=== PATIENT | male | born 1980 | race Caucasian/White ===

== ENCOUNTER 2016-10-10 20:10 | Emergency (ER) | payer OTHER ==
--- NOTE | 2016-10-10 21:21 | ED ORDER SUMMARY ---
..... Patient: JACBO QUINTANA OrderSheet [facility] VisitID: [id number] [address] [place] [address] 35y, M Registration Date/Time: 10/10/2016 ORDER SHEET Weight: 72.5 kg (stated) Allergies: Codeine GENERAL ORDERS: MEDICATION ORDERS: Bactrim DS PO (Tablet 800-160 mg) 2 tabs (NOW) (21:19 10/10/2016 Rosalinda BERRIOS) (Ack 21:20 MWinterer R.N.) (21:31 MWinterer R.N.) Hydrocodone-APAP PO 5/325 mg (NOW, HIGH ALERT MEDICATION) (21:19 10/10/2016 Rosalinda BERRIOS) (Ack 21:20 MWinterer R.N.) (Cancelled: Other21:31 MWinterer R.N.) Ibuprofen PO 800 mg (NOW) (21:31 10/10/2016 MWinterer R.N. verbal order read back to Rosalinda BERRIOS) (21:31 MWinterer R.N.) IV FLUIDS: ORDER SHEET NOTES: [Electronically signed by Margie Lock R.N. (22:04 10/10/2016)] [Electronically signed by Dahiana Jaramillo MD (02:41 10/18/2016)] [Electronically locked/signed by Margie Lock R.N. (22:04 10/10/2016)]
--- NOTE | 2016-10-10 21:21 | ED ORDER SUMMARY ---
..... Patient: JACOB QUINTANA OrderSheet [facility] VisitID: [id number] [address] [place] [address] 35y, M Registration Date/Time: 10/10/2016 ORDER SHEET Weight: 72.5 kg (stated) Allergies: Codeine GENERAL ORDERS: MEDICATION ORDERS: Bactrim DS PO (Tablet 800-160 mg) 2 tabs (NOW) (21:19 10/10/2016 Rosalinda BERRIOS) (Ack 21:20 MWinterer R.N.) (21:31 MWinterer R.N.) Hydrocodone-APAP PO 5/325 mg (NOW, HIGH ALERT MEDICATION) (21:19 10/10/2016 Rosalinda BERRIOS) (Ack 21:20 MWinterer R.N.) (Cancelled: Other21:31 MWinterer R.N.) Ibuprofen PO 800 mg (NOW) (21:31 10/10/2016 MWinterer R.N. verbal order read back to Rosalinda BERRIOS) (21:31 MWinterer R.N.) IV FLUIDS: ORDER SHEET NOTES: [Electronically signed by Margie Lock R.N. (22:04 10/10/2016)] [Electronically signed by Dahiana Jaramillo MD (02:41 10/18/2016)] [Electronically locked/signed by Margie Lock R.N. (22:04 10/10/2016)]
--- NOTE | 2016-10-10 21:21 | ED NURSING NOTES ---
Clinical Report - Nurses Located Within [facility] [address] [place] [address] 10/10/2016 20:10 Patient: JACOB QUINTANA TRIAGE Acuity: LEVEL 4. Chief Complaint: BOIL. Alert. No acute distress. SEPSIS SCREEN: Sepsis Screen. Negative (no infection suspected/documented). --20:19 Margie Lock R.N. 20:13 10/10/16. BP: 113/83. HR: 117. RR: 20. O2 saturation: 100% on room air. Temp: 99.9 F. Pain level now: 12/20. --20:19 Margie Lock R.N. Weight: 72.5 kg stated. Height/Length: 65 inches Per Patient. BMI: 26.6. --20:17 Margie Lock R.N. Medications Methadone HCl Oral 90 mg. --20:14 Margie Lock R.N. Adderall Oral. --20:15 Margie Lock R.N. Medication/allergy information source: the patient. --20:19 Margie Lock R.N. Allergies Codeine.(rash) --20:14 Margie Lock R.N. History Arrived by private vehicle. Historian: patient. Unaccompanied. Primary physician (none). Reported as located on the face. This started yesterday. Treatment STUDENT NURSE: (ativan). PAST MEDICAL HX: Immunizations: up-to-date. SOCIAL HX: Current some days light tobacco smoker (cigarette)- less than 1/2 a pack per day. Heavy alcohol use; consumes liquor. History of IV drug use: methamphetamines. Recently used drugs yesterday. FALL RISK ASSESSMENT: Fall risk assessment completed. No fall risk identified. NUTRITIONAL RISK ASSESSMENT: The nutritional risk assessment revealed no deficiencies. FUNCTIONAL ASSESSMENT: Functional assessment: no impairments noted. LEARNING NEEDS ASSESSMENT: The learning needs assessment revealed no barriers. SKIN INTEGRITY ASSESSMENT: Skin integrity risk assessment completed. No skin integrity risk identified. --20:19 Margie Lock R.N. PROBLEMS: Hypertension. Folliculitis. Near Syncope. Cellulitis Check. Cellulitis. Abscess. Substance Abuse. --20:15 Margie Lock R.N. ADDITIONAL SURGERIES: Hernia Repair. --20:15 Margie Lock R.N. Assessment GENERAL / NEURO / PSYCH: Alert. Oriented X 4. Appears in no acute distress. Iram Coma Scale: 15- eyes open spontaneously (4); best verbal response- oriented x 4 (5); best motor response- obeys commands (6). Patient appears calm and cooperative. RESPIRATORY: Respirations not labored. CVS: Capillary refill less than 2 seconds. GI / : Abdomen soft. SKIN: Mucous membranes are pink. Skin is warm and dry. --20:19 Margie Lock R.N. Interventions ID band on patient. To treatment room. Ambulatory. --20:19 Margie Lock R.N. PHYSICAL ASSESSMENT 20:10/10/16. Ambulatory to room. GENERAL / NEURO / PSYCH: Alert. The patient does not appear to be in acute distress. Oriented X 4. HEENT: Mucous membranes are pink. RESPIRATORY: Respirations not labored. CVS: Capillary refill less than 2 seconds. GI / : Abdomen nontender. SKIN: Skin is warm and dry. Multiple skin lesions with erythema, tenderness and increased warmth on the face. Swelling on the face. Medium sized area of erythema on the face- associated with swelling and tenderness. --20:21 Margie Lock R.N. NURSING PROGRESS NOTES 20:10/10/16. Two patient identifiers checked. Call light placed in reach. Side rails up x 1. Bed placed in lowest position. Brakes of bed on. Patient ready for evaluation- chart flagged and ED physician and MOBILE GAME ENGINEER notified. --20:21 Margie Lock R.N. 21:10/10/2016 Bactrim DS (Sulfamethoxazole-TMP DS) PO 1 tab given. Allergies verified and confirmed 5 rights. --21:31 Margie Lock R.N. 21:26 10/10/2016 Ibuprofen PO 800 mg given. Allergies verified and confirmed 5 rights. --21:31 Margie Lock R.N. DISPOSITION / DISCHARGE Departure time: 21:Oct 10 2016. Condition at departure: improved and stable. No learning barriers present. Discharge instructions provided and reviewed with the patient. Reviewed medication(s) side effects, precautions and dosing information. Prescription(s) given to the patient. Patient verbalized understanding. Written instructions provided in Arabic. The patient was discharged by the physician. He was discharged home. He left the Emergency Department ambulatory and via private vehicle. Patient driving. --22:04 Margie Lock R.N. Locked/Released at 10/10/2016 22:04 by Margie Lock R.N.
--- NOTE | 2016-10-10 21:21 | ED CLINICAL REPORT ---
Clinical Report - Physicians/Mid Levels [facility] [address] [place] [address] 10/10/2016 20:10 Patient: JACOB QUINTANA Time Seen: 20:20. Arrived- By private vehicle. Historian- patient. HISTORY OF PRESENT ILLNESS Chief Complaint: SKIN RASH. This started several weeks ago and is still present. It is described as itchy. It has been located on the face. A cause has been identified (Patient states he knows that he has the scabs on his face because he has relapsed on methamphetamines.). Similar symptoms previously: Recent medical care: Not recently seen/assessed. REVIEW OF SYSTEMS No fever, chills, sore throat, cough or difficulty breathing. No hoarseness, lump in throat, enlarged lymph nodes, headache or eye irritation. No chest pain, abdominal pain, nausea, diarrhea or difficulty with urination. No joint pain or vomiting. All systems otherwise negative, except as recorded above. PAST HISTORY Problems: Hypertension. Folliculitis. Near Syncope. Abscess. Substance Abuse. Additional Surgeries: Hernia Repair. Medications: Adderall Oral. Methadone HCl Oral 90 mg. Allergies: Codeine.(rash). SOCIAL HISTORY Smoker- current status unknown. Alcohol use. History of drug use: methamphetamines. PHYSICAL EXAM Appearance: Alert. Oriented X3. No acute distress. Eyes: Pupils equal, round and reactive to light. Conjunctivae and eyelids normal. ENT: Nose normal. Neck: Neck supple. CVS: Normal heart rate and rhythm. Heart sounds normal. Respiratory: No respiratory distress. Breath sounds normal. Abdomen: Nontender. Skin: Skin warm and dry. (patient has multiple scabbed lesions on his face, and in various stages of healing. Mild amount of cellulitis is associated with 2 of the lesions.). Extremities: Normal external inspection. Extremities nontender. Neuro: No motor deficit. No sensory deficit. (Patient is grossly oriented.). LABS, X-RAYS, AND EKG Pulse Oximetry: 10/10/2016 20:13 O2 saturation: 100%. (FIO2 - room air). Interpretation: normal. PROGRESS AND PROCEDURES Course of Care: Patient was started on Bactrim for his facial lesions. He was given a dose of ibuprofen for his discomfort. Patient is advised to get help with his drug use, and he is advised to take all his medications as prescribed. Patient counseled in person regarding the patient's stable condition, diagnosis and need for follow-up. Concerns were addressed. Old medical records reviewed. Disposition: Discharged. Condition: stable. CLINICAL IMPRESSION Cellulitis of the chin and right and left cheek area. INSTRUCTIONS Warnings: GENERAL WARNINGS: Return or contact your physician immediately if your condition worsens or changes unexpectedly, if not improving as expected, or if other problems arise. Your Current Medications: CONTINUE TAKING THE FOLLOWING MEDICATIONS: Adderall Oral. Methadone HCl Oral : 90 mg. Prescription Medications: Bactrim DS 800 mg / 160 mg: take 1 tablet orally every 12 hours for 7 days. No refill. Substitution is permissible. Follow-up: Follow up with your doctor in seven days if not better. Understanding of the discharge instructions verbalized by patient. (Electronically signed by Dahiana Jaramillo MD 10/18/2016 2:41)
--- NOTE | 2016-10-10 21:21 | ED NURSING NOTES ---
Clinical Report - Nurses [facility] [address] [place] [address] 10/10/2016 20:10 Patient: JACOB QUINTANA TRIAGE Acuity: LEVEL 4. Chief Complaint: BOIL. Alert. No acute distress. SEPSIS SCREEN: Sepsis Screen. Negative (no infection suspected/documented). --20:19 Margie Lock R.N. 20:13 10/10/16. BP: 113/83. HR: 117. RR: 20. O2 saturation: 100% on room air. Temp: 99.9 F. Pain level now: 12/20. --20:19 Margie Lock R.N. Weight: 72.5 kg stated. Height/Length: 65 inches Per Patient. BMI: 26.6. --20:17 Margie Lock R.N. Medications Methadone HCl Oral 90 mg. --20:14 Margie Lock R.N. Adderall Oral. --20:15 Margie Lock R.N. Medication/allergy information source: the patient. --20:19 Margie Lock R.N. Allergies Codeine.(rash) --20:14 Margie Lock R.N. History Arrived by private vehicle. Historian: patient. Unaccompanied. Primary physician (none). Reported as located on the face. This started yesterday. Treatment SALES REPRESENTATIVE ELECTRIC SERVICE: (ativan). PAST MEDICAL HX: Immunizations: up-to-date. SOCIAL HX: Current some days light tobacco smoker (cigarette)- less than 1/2 a pack per day. Heavy alcohol use; consumes liquor. History of IV drug use: methamphetamines. Recently used drugs yesterday. FALL RISK ASSESSMENT: Fall risk assessment completed. No fall risk identified. NUTRITIONAL RISK ASSESSMENT: The nutritional risk assessment revealed no deficiencies. FUNCTIONAL ASSESSMENT: Functional assessment: no impairments noted. LEARNING NEEDS ASSESSMENT: The learning needs assessment revealed no barriers. SKIN INTEGRITY ASSESSMENT: Skin integrity risk assessment completed. No skin integrity risk identified. --20:19 Margie Lock R.N. PROBLEMS: Hypertension. Folliculitis. Near Syncope. Cellulitis Check. Cellulitis. Abscess. Substance Abuse. --20:15 Margie Lock R.N. ADDITIONAL SURGERIES: Hernia Repair. --20:15 Margie Lock R.N. Assessment GENERAL / NEURO / PSYCH: Alert. Oriented X 4. Appears in no acute distress. Iram Coma Scale: 15- eyes open spontaneously (4); best verbal response- oriented x 4 (5); best motor response- obeys commands (6). Patient appears calm and cooperative. RESPIRATORY: Respirations not labored. CVS: Capillary refill less than 2 seconds. GI / : Abdomen soft. SKIN: Mucous membranes are pink. Skin is warm and dry. --20:19 Margie Lock R.N. Interventions ID band on patient. To treatment room. Ambulatory. --20:19 Margie Lock R.N. PHYSICAL ASSESSMENT 20:10/10/16. Ambulatory to room. GENERAL / NEURO / PSYCH: Alert. The patient does not appear to be in acute distress. Oriented X 4. HEENT: Mucous membranes are pink. RESPIRATORY: Respirations not labored. CVS: Capillary refill less than 2 seconds. GI / : Abdomen nontender. SKIN: Skin is warm and dry. Multiple skin lesions with erythema, tenderness and increased warmth on the face. Swelling on the face. Medium sized area of erythema on the face- associated with swelling and tenderness. --20:21 Margie Lock R.N. NURSING PROGRESS NOTES 20:10/10/16. Two patient identifiers checked. Call light placed in reach. Side rails up x 1. Bed placed in lowest position. Brakes of bed on. Patient ready for evaluation- chart flagged and ED physician and OPERATIONS ARCHITECT notified. --20:21 Margie Lock R.N. 21:10/10/2016 Bactrim DS (Sulfamethoxazole-TMP DS) PO 1 tab given. Allergies verified and confirmed 5 rights. --21:31 Margie Lock R.N. 21:26 10/10/2016 Ibuprofen PO 800 mg given. Allergies verified and confirmed 5 rights. --21:31 Margie Lock R.N. DISPOSITION / DISCHARGE Departure time: 21:Oct 10 2016. Condition at departure: improved and stable. No learning barriers present. Discharge instructions provided and reviewed with the patient. Reviewed medication(s) side effects, precautions and dosing information. Prescription(s) given to the patient. Patient verbalized understanding. Written instructions provided in Hebrew. The patient was discharged by the physician. He was discharged home. He left the Emergency Department ambulatory and via private vehicle. Patient driving. --22:04 Margie Lock R.N. Locked/Released at 10/10/2016 22:04 by Margie Lock R.N.
--- NOTE | 2016-10-10 21:21 | ED CLINICAL REPORT ---
Clinical Report - Physicians/Mid Levels [facility] [address] [place] [address] 10/10/2016 20:10 Patient: JACOB QUINTANA Time Seen: 20:20. Arrived- By private vehicle. Historian- patient. HISTORY OF PRESENT ILLNESS Chief Complaint: SKIN RASH. This started several weeks ago and is still present. It is described as itchy. It has been located on the face. A cause has been identified (Patient states he knows that he has the scabs on his face because he has relapsed on methamphetamines.). Similar symptoms previously: Recent medical care: Not recently seen/assessed. REVIEW OF SYSTEMS No fever, chills, sore throat, cough or difficulty breathing. No hoarseness, lump in throat, enlarged lymph nodes, headache or eye irritation. No chest pain, abdominal pain, nausea, diarrhea or difficulty with urination. No joint pain or vomiting. All systems otherwise negative, except as recorded above. PAST HISTORY Problems: Hypertension. Folliculitis. Near Syncope. Abscess. Substance Abuse. Additional Surgeries: Hernia Repair. Medications: Adderall Oral. Methadone HCl Oral 90 mg. Allergies: Codeine.(rash). SOCIAL HISTORY Smoker- current status unknown. Alcohol use. History of drug use: methamphetamines. PHYSICAL EXAM Appearance: Alert. Oriented X3. No acute distress. Eyes: Pupils equal, round and reactive to light. Conjunctivae and eyelids normal. ENT: Nose normal. Neck: Neck supple. CVS: Normal heart rate and rhythm. Heart sounds normal. Respiratory: No respiratory distress. Breath sounds normal. Abdomen: Nontender. Skin: Skin warm and dry. (patient has multiple scabbed lesions on his face, and in various stages of healing. Mild amount of cellulitis is associated with 2 of the lesions.). Extremities: Normal external inspection. Extremities nontender. Neuro: No motor deficit. No sensory deficit. (Patient is grossly oriented.). LABS, X-RAYS, AND EKG Pulse Oximetry: 10/10/2016 20:13 O2 saturation: 100%. (FIO2 - room air). Interpretation: normal. PROGRESS AND PROCEDURES Course of Care: Patient was started on Bactrim for his facial lesions. He was given a dose of ibuprofen for his discomfort. Patient is advised to get help with his drug use, and he is advised to take all his medications as prescribed. Patient counseled in person regarding the patient's stable condition, diagnosis and need for follow-up. Concerns were addressed. Old medical records reviewed. Disposition: Discharged. Condition: stable. CLINICAL IMPRESSION Cellulitis of the chin and right and left cheek area. INSTRUCTIONS Warnings: GENERAL WARNINGS: Return or contact your physician immediately if your condition worsens or changes unexpectedly, if not improving as expected, or if other problems arise. Your Current Medications: CONTINUE TAKING THE FOLLOWING MEDICATIONS: Adderall Oral. Methadone HCl Oral : 90 mg. Prescription Medications: Bactrim DS 800 mg / 160 mg: take 1 tablet orally every 12 hours for 7 days. No refill. Substitution is permissible. Follow-up: Follow up with your doctor in seven days if not better. Understanding of the discharge instructions verbalized by patient. (Electronically signed by Dahiana Jaramillo MD 10/18/2016 2:41)
--- NOTE | 2016-10-18 02:41 | ED MED RECONCILIATION SUMMARY ---
Patient: JACOB QUINTANA Medication Reconciliation Report [facility] VisitID: [id number] [address] [place] [address] 35y, M Registration Date/Time: 10/10/2016 Weight: 72.5 kg Height/Length: 65 in. BMI: 26.6 ALLERGIES: Codeine The patient's Home Medications are listed below: CONTINUE TAKING THE FOLLOWING MEDICATIONS: Adderall Oral Methadone HCl Oral 90 mg The source(s) of the original Home Medication information: patient The following Medications were given to the patient in the Emergency Department: Bactrim DS [PO] PO 1 tab, administered: 10/10/2016 9:26:00 PM Ibuprofen [PO] PO 800 mg, administered: 10/10/2016 9:26:00 PM The following Medications were prescribed to the patient: Bactrim DS 800 mg / 160 mg: take 1 tablet orally every 12 hours for 7 days. No refill. Substitution is permissible. -- Dahiana Jaramillo MD
--- NOTE | 2016-10-18 02:41 | ED MAR SUMMARY ---
..... Medication Administration Record [facility] [address] [place] [address] Patient: JACOB QUINTANA Visit ID: [id number] 35y, M Weight: 72.5 kg Height/Length: 65 in BMI: 26.6 ALLERGIES: Codeine Given 10/10/2016 Margie Lock, R.N. Medication Administered: BACTRIM DS [PO] (SULFAMETHOXAZOLE-TMP DS), Dose: 1 tab PO. Medication Ordered: Bactrim DS PO (Tablet 800-160 mg) 2 tabs (NOW). Given 10/10/2016 Margie Lock, R.N. Medication Administered: IBUPROFEN [PO], Dose: 800 mg PO. Medication Ordered: Ibuprofen PO 800 mg (NOW).
--- NOTE | 2016-10-18 02:41 | ED MAR SUMMARY ---
..... Medication Administration Record [facility] [address] [place] [address] Patient: JACOB QUINTANA Visit ID: [id number] 35y, M Weight: 72.5 kg Height/Length: 65 in BMI: 26.6 ALLERGIES: Codeine Given 10/10/2016 Margie Lock, R.N. Medication Administered: BACTRIM DS [PO] (SULFAMETHOXAZOLE-TMP DS), Dose: 1 tab PO. Medication Ordered: Bactrim DS PO (Tablet 800-160 mg) 2 tabs (NOW). Given 10/10/2016 Margie Lock, R.N. Medication Administered: IBUPROFEN [PO], Dose: 800 mg PO. Medication Ordered: Ibuprofen PO 800 mg (NOW).
--- NOTE | 2016-10-18 02:41 | ED MED RECONCILIATION SUMMARY ---
Patient: JACOB QUINTANA Medication Reconciliation Report [facility] VisitID: [id number] [address] [place] [address] 35y, M Registration Date/Time: 10/10/2016 Weight: 72.5 kg Height/Length: 65 in. BMI: 26.6 ALLERGIES: Codeine The patient's Home Medications are listed below: CONTINUE TAKING THE FOLLOWING MEDICATIONS: Adderall Oral Methadone HCl Oral 90 mg The source(s) of the original Home Medication information: patient The following Medications were given to the patient in the Emergency Department: Bactrim DS [PO] PO 1 tab, administered: 10/10/2016 9:26:00 PM Ibuprofen [PO] PO 800 mg, administered: 10/10/2016 9:26:00 PM The following Medications were prescribed to the patient: Bactrim DS 800 mg / 160 mg: take 1 tablet orally every 12 hours for 7 days. No refill. Substitution is permissible. -- Dahiana Jaramillo MD
--- NOTE | 2016-10-18 02:41 | ED DISCHARGE INSTRUCTIONS ---
Patient: JACOB QUINTANA General Instructions [facility] VisitID: [id number] [place] [address] 35y, M Registration Date/Time: 10/10/2016 Cellulitis of the chin and right and left cheek area. INSTRUCTIONS Warnings: GENERAL WARNINGS: Return or contact your physician immediately if your condition worsens or changes unexpectedly, if not improving as expected, or if other problems arise. Your Current Medications: CONTINUE TAKING THE FOLLOWING MEDICATIONS: Adderall Oral. Methadone HCl Oral : 90 mg. Prescription Medications: Bactrim DS 800 mg / 160 mg: take 1 tablet orally every 12 hours for 7 days. No refill. Substitution is permissible. Follow-up: Follow up with your doctor in seven days if not better. Understanding of the discharge instructions verbalized by patient. ADDITIONAL INFORMATION Facial Cellulitis You have an infection of the skin known as cellulitis. This usually starts with a scrape, cut or insect bite which becomes infected. It may also occur from an infected oil gland (pimple) or hair follicle. This can be a serious condition and must be watched closely to be sure the infection is not spreading. With antibiotic treatment, the size of the red area will gradually shrink in size until the skin returns to normal. This will take 7-10 days. The red area should never increase in size once the antibiotic medicine has been started. Occasionally, an infection will be resistant to one antibiotic and another one will have to be used. Home Care: 1) Take all of the antibiotic medicine exactly as prescribed until it is gone. Be careful not to miss any doses, especially during the first few days. 2) A cool compress (face cloth soaked in cool water) applied to the face may help with the swelling and pain. 3) You may use acetaminophen (Tylenol) or ibuprofen (Motrin, Advil) to control pain, unless another medicine was prescribed. [ NOTE : If you have chronic liver or kidney disease or ever had a stomach ulcer or GI bleeding, talk with your doctor before using these medicines.] (Aspirin should never be used in anyone under 18 years of age who is ill with a fever. It may cause severe liver damage.) Follow Up with your doctor or this facility as directed. Check the infected area daily for the warning signs listed below. Get Prompt Medical Attention if any of the following occur: -- Increasing area of redness, swelling or pain -- Pus or fluid drainage from the skin or the eye -- Fever of 100.5 F (38 C) oral or 101.5 F (38.6 C) rectal for more than two days on antibiotics -- Eyelid swells shut -- Increasing headache or neck pain -- Unusual drowsiness or confusion -- Convulsion (seizure) You have been given the following additional information: Cellulitis, Facial (Electronically signed by Dahiana Jaramillo MD 10/18/2016 2:41)
== END 2016-10-10 22:34 | disposition home or self-care (01) ==
LOC: ED SRH 20:10
DX: L03.211 Cellulitis of face (principal); Z79.899 Other long term (current) drug therapy; Z79.891 Long term (current) use of opiate analgesic; Z88.5 Allergy status to narcotic agent

== ENCOUNTER 2016-11-11 13:42 | Emergency (ER) | payer OTHER ==
--- NOTE | 2016-11-11 14:35 | ED NURSING NOTES ---
Clinical Report - Nurses [facility] [address] [place] [address] 11/11/2016 13:41 Patient: JACOB QUINTANA TRIAGE Triage time 13:57. Acuity: LEVEL 4. Chief Complaint: SKIN LESION and TENDER AREA and . possible abscess from razor cut 2 days ago. C/o pain and swelling on the right cheek and into his lower jaw. SEPSIS SCREEN: Sepsis Screen. Negative (no infection suspected/documented). IRAM COMA SCORE: Iram Coma Scale: 15- eyes open spontaneously (4); best verbal response- oriented x 4 (5); best motor response- obeys commands (6). --14:04 Rajan Knight R.N. 13:57 11/11/16. BP: 118/74 (regular adult cuff) taken on the left arm, while lying. HR: 86. RR: 16. O2 saturation: 100% on room air. Temp: 98.7 F (oral). Pain level now: 08/20. --14:04 Rajan Knight R.N. Weight: 75.7 kg stated. Height/Length: 65 inches Per Patient. BMI: 27.8. --14:01 Rajan Knight R.N. Medications Adderall Oral. Methadone HCl Oral 90 mg. --13:58 Rajan Knight R.N. Allergies Codeine.(rash) --13:58 Rajan Knight R.N. History Arrived by private vehicle. Historian: patient. 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 SOCIAL HX: Smoker- current status unknown (cigarette) (still chews - planning to quit). Alcohol use. (quit 1 week ago due to LFTs). History of drug use. (Quit). ABUSE ASSESSMENT: No report of abuse. --14:04 Rajan Knight R.N. PROBLEMS: Hypertension. Folliculitis. Near Syncope. Cellulitis Check. Cellulitis. Abscess. Substance Abuse. --13:58 Rajan Knight R.N. ADDITIONAL SURGERIES: Hernia Repair. --13:58 Rajan Knight R.N. Interventions ID band on patient. To treatment room. --14:04 Rajan Knight R.N. PHYSICAL ASSESSMENT Ambulatory to room. GENERAL / NEURO / PSYCH: Alert. The patient does not appear to be in acute distress. Oriented X 4. HEENT: Pupils equal, round and reactive to light. Facial swelling present right cheek and under lower jaw. Mucous membranes are pink. RESPIRATORY: Respirations not labored. Breath sounds within normal limits. SKIN: Skin is warm and dry. Normal skin turgor. Skin not intact. Skin tenderness is present. Tenderness on the face. Erythema on the face. No skin rash. --14:06 Rajan Knight R.N. NURSING PROGRESS NOTES Head of bed elevated. Reassurance given. Two patient identifiers checked. Call light placed in reach. Bed placed in lowest position. Brakes of bed on. Patient ready for evaluation- chart flagged. --14:07 Rajan Knight R.N. DISPOSITION / DISCHARGE Departure time: 1437. Condition at departure: unchanged and stable. No learning barriers present. Discharge instructions provided and reviewed with the patient. Reviewed warnings. Reviewed medication(s). Treatments reviewed. Patient verbalized understanding. Written instructions provided in [place]. The patient was discharged by the physician. He was discharged home. He left the Emergency Department ambulatory and via private vehicle. Patient driving. --14:39 Rajan Knight R.N. Locked/Released at 11/12/2016 8:03 by Rajan Knight R.N.
--- NOTE | 2016-11-11 14:35 | ED CLINICAL REPORT ---
Clinical Report - Physicians/Mid Levels [facility] [address] [place] [place] [address] 11/11/2016 13:41 Patient: JACOB QUINTANA Time Seen: 14:03. Arrived- By private vehicle. Historian- patient. HISTORY OF PRESENT ILLNESS Chief Complaint: SKIN RASH and LESION. This started several days weeks ago. It is described as itchy and painful. It has been located on the face. No cause has been identified. No recent medication or insect bite. Similar symptoms previously: Several times. ( MRSA and Meth picking. Not currently using meth per pt.). REVIEW OF SYSTEMS No fever, cough, difficulty breathing or abdominal pain. PAST HISTORY PAST HISTORY Problems: Hypertension. Folliculitis. Near Syncope. Abscess. Substance Abuse. Additional Surgeries: Hernia Repair. Medications: Adderall Oral. Methadone HCl Oral 90 mg. 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 ADDITIONAL NOTES The nursing notes have been reviewed. PHYSICAL EXAM Vital Signs: 11/11/2016 13:57 BP: 118/74. HR: 86. RR: 16. O2 saturation: 100%. Temp: 98.7 F. Pain level now: 3/10. Appearance: Alert. No acute distress. ENT: Pharynx normal. Respiratory: No respiratory distress. Breath sounds normal. Chest nontender. Abdomen: Nontender. Skin: Multiple tender indurated areas to the face. PROGRESS AND PROCEDURES Disposition: Discharged. Condition: stable. CLINICAL IMPRESSION Multiple superficial abscesses to the face (early ie phlegmon). INSTRUCTIONS Prescription Medications: Bactrim DS 800 mg / 160 mg: Take 1 tablet orally every 12 hours for 7 days. Dispense fourteen (14). No refills. Substitution is permissible. Keflex 500 mg: take 1 capsule orally every 6 hours for 7 days. No refills. Substitution is permissible. Follow-up: Follow up with doctor MONTRELL. Understanding of the discharge instructions verbalized by patient. (Electronically signed by Riccardo Rossi MD 11/12/2016 15:43)
--- NOTE | 2016-11-11 14:35 | ED NURSING NOTES ---
Clinical Report - Nurses [facility] [address] [place] [address] 11/11/2016 13:41 Patient: JACOB QUINTANA TRIAGE Triage time 13:57. Acuity: LEVEL 4. Chief Complaint: SKIN LESION and TENDER AREA and . possible abscess from razor cut 2 days ago. C/o pain and swelling on the right cheek and into his lower jaw. SEPSIS SCREEN: Sepsis Screen. Negative (no infection suspected/documented). IRAM COMA SCORE: Iram Coma Scale: 15- eyes open spontaneously (4); best verbal response- oriented x 4 (5); best motor response- obeys commands (6). --14:04 Rajan Knight R.N. 13:57 11/11/16. BP: 118/74 (regular adult cuff) taken on the left arm, while lying. HR: 86. RR: 16. O2 saturation: 100% on room air. Temp: 98.7 F (oral). Pain level now: 08/20. --14:04 Rajan Knight R.N. Weight: 75.7 kg stated. Height/Length: 65 inches Per Patient. BMI: 27.8. --14:01 Rajan Knight R.N. Medications Adderall Oral. Methadone HCl Oral 90 mg. --13:58 Rajan Knight R.N. Allergies Codeine.(rash) --13:58 Rajan Knight R.N. History Arrived by private vehicle. Historian: patient. 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 SOCIAL HX: Smoker- current status unknown (cigarette) (still chews - planning to quit). Alcohol use. (quit 1 week ago due to LFTs). History of drug use. (Quit). ABUSE ASSESSMENT: No report of abuse. --14:04 Rajan Knight R.N. PROBLEMS: Hypertension. Folliculitis. Near Syncope. Cellulitis Check. Cellulitis. Abscess. Substance Abuse. --13:58 Rajan Knight R.N. ADDITIONAL SURGERIES: Hernia Repair. --13:58 Rajan Knight R.N. Interventions ID band on patient. To treatment room. --14:04 Rajan Knight R.N. PHYSICAL ASSESSMENT Ambulatory to room. GENERAL / NEURO / PSYCH: Alert. The patient does not appear to be in acute distress. Oriented X 4. HEENT: Pupils equal, round and reactive to light. Facial swelling present right cheek and under lower jaw. Mucous membranes are pink. RESPIRATORY: Respirations not labored. Breath sounds within normal limits. SKIN: Skin is warm and dry. Normal skin turgor. Skin not intact. Skin tenderness is present. Tenderness on the face. Erythema on the face. No skin rash. --14:06 Rajan Knight R.N. NURSING PROGRESS NOTES Head of bed elevated. Reassurance given. Two patient identifiers checked. Call light placed in reach. Bed placed in lowest position. Brakes of bed on. Patient ready for evaluation- chart flagged. --14:07 Rajan Knight R.N. DISPOSITION / DISCHARGE Departure time: 1437. Condition at departure: unchanged and stable. No learning barriers present. Discharge instructions provided and reviewed with the patient. Reviewed warnings. Reviewed medication(s). Treatments reviewed. Patient verbalized understanding. Written instructions provided in Congolese. The patient was discharged by the physician. He was discharged home. He left the Emergency Department ambulatory and via private vehicle. Patient driving. --14:39 Rajan Knight R.N. Locked/Released at 11/12/2016 8:03 by Rajan Knight R.N.
--- NOTE | 2016-11-11 14:35 | ED CLINICAL REPORT ---
Clinical Report - Physicians/Mid Levels [facility] [address] [place] [address] 11/11/2016 13:41 Patient: JACOB QUINTANA Time Seen: 14:03. Arrived- By private vehicle. Historian- patient. HISTORY OF PRESENT ILLNESS Chief Complaint: SKIN RASH and LESION. This started several days weeks ago. It is described as itchy and painful. It has been located on the face. No cause has been identified. No recent medication or insect bite. Similar symptoms previously: Several times. ( MRSA and Meth picking. Not currently using meth per pt.). REVIEW OF SYSTEMS No fever, cough, difficulty breathing or abdominal pain. PAST HISTORY PAST HISTORY Problems: Hypertension. Folliculitis. Near Syncope. Abscess. Substance Abuse. Additional Surgeries: Hernia Repair. Medications: Adderall Oral. Methadone HCl Oral 90 mg. 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 ADDITIONAL NOTES The nursing notes have been reviewed. PHYSICAL EXAM Vital Signs: 11/11/2016 13:57 BP: 118/74. HR: 86. RR: 16. O2 saturation: 100%. Temp: 98.7 F. Pain level now: 3/10. Appearance: Alert. No acute distress. ENT: Pharynx normal. Respiratory: No respiratory distress. Breath sounds normal. Chest nontender. Abdomen: Nontender. Skin: Multiple tender indurated areas to the face. PROGRESS AND PROCEDURES Disposition: Discharged. Condition: stable. CLINICAL IMPRESSION Multiple superficial abscesses to the face (early ie phlegmon). INSTRUCTIONS Prescription Medications: Bactrim DS 800 mg / 160 mg: Take 1 tablet orally every 12 hours for 7 days. Dispense fourteen (14). No refills. Substitution is permissible. Keflex 500 mg: take 1 capsule orally every 6 hours for 7 days. No refills. Substitution is permissible. Follow-up: Follow up with doctor MONTRELL. Understanding of the discharge instructions verbalized by patient. (Electronically signed by Riccardo Rossi MD 11/12/2016 15:43)
--- NOTE | 2016-11-12 15:43 | ED DISCHARGE INSTRUCTIONS ---
Patient: JACOB QUINTANA General Instructions [facility] VisitID: [id number] [address] [place] [address] 36y, M Registration Date/Time: 11/11/2016 Multiple superficial abscesses to the face (early ie phlegmon). INSTRUCTIONS Prescription Medications: Bactrim DS 800 mg / 160 mg: Take 1 tablet orally every 12 hours for 7 days. Dispense fourteen (14). No refills. Substitution is permissible. Keflex 500 mg: take 1 capsule orally every 6 hours for 7 days. No refills. Substitution is permissible. Follow-up: Follow up with doctor GLOR. Understanding of the discharge instructions verbalized by patient. ADDITIONAL INFORMATION Abscess (Antibiotic Treatment Only) An abscess (sometimes called a boil) occurs when bacteria get trapped under the skin and begin to grow. Pus forms inside the abscess as the body responds to the bacteria. An abscess can occur with an insect bite, ingrown hair, blocked oil gland, pimple, cyst, or puncture wound. In the early stages, redness and tenderness are the only symptoms. Sometimes, this stage can be treated with antibiotics alone. If the abscess does not respond to antibiotic treatment, it will need to be drained with a small cut, under local anesthesia. Home care The following will help you care for your abscess at home: Soak the wound in hot water or apply hot packs (small towel soaked in hot water) to the area for 20 minutes at a time. Do this three to four times a day. Apply antibiotic cream or ointment onto the skin 3-4 times a day, unless something else was prescribed. Some ointments include an antibiotic plus a local pain reliever. If your doctor prescribed antibiotics, do not stop taking this medication until you have finished the prescribed course or the doctor tells you to stop. You may use an [id number] pain medication to control pain, unless another pain medicine was prescribed. If you have chronic liver or kidney disease or ever had a stomach ulcer or GI bleeding, talk with your doctor before using these any of these. Follow-up care Follow up with your health care provider as advised by our staff. Look at your wound each day for the signs of worsening infection listed below. When to seek medical care Get prompt medical attention if any of the following occur: An increase in redness or swelling Red streaks in the skin leading away from the abscess An increase in local pain or swelling Fever of 100.4F (38C) or higher, or as directed by your health care provider Pus or fluid coming from the abscess You have been given the following additional information: Abscess, Antiobiotic Treatment Only (Electronically signed by Riccardo Rossi MD 11/12/2016 15:43)
--- NOTE | 2016-11-12 15:43 | ED MAR SUMMARY ---
..... Medication Administration Record [facility] [address] [place], [place] [id number] Patient: JACOB QUINTANA Visit ID: [id number] 36y, M Weight: 75.7 kg Height/Length: 65 in BMI: 27.8 ALLERGIES: Codeine
--- NOTE | 2016-11-12 15:43 | ED DISCHARGE INSTRUCTIONS ---
Patient: JACOB QUINTANA General Instructions [facility] VisitID: [id number] [address] [place] [address] 36y, M Registration Date/Time: 11/11/2016 Multiple superficial abscesses to the face (early ie phlegmon). INSTRUCTIONS Prescription Medications: Bactrim DS 800 mg / 160 mg: Take 1 tablet orally every 12 hours for 7 days. Dispense fourteen (14). No refills. Substitution is permissible. Keflex 500 mg: take 1 capsule orally every 6 hours for 7 days. No refills. Substitution is permissible. Follow-up: Follow up with doctor GLOR. Understanding of the discharge instructions verbalized by patient. ADDITIONAL INFORMATION Abscess (Antibiotic Treatment Only) An abscess (sometimes called a boil) occurs when bacteria get trapped under the skin and begin to grow. Pus forms inside the abscess as the body responds to the bacteria. An abscess can occur with an insect bite, ingrown hair, blocked oil gland, pimple, cyst, or puncture wound. In the early stages, redness and tenderness are the only symptoms. Sometimes, this stage can be treated with antibiotics alone. If the abscess does not respond to antibiotic treatment, it will need to be drained with a small cut, under local anesthesia. Home care The following will help you care for your abscess at home: Soak the wound in hot water or apply hot packs (small towel soaked in hot water) to the area for 20 minutes at a time. Do this three to four times a day. Apply antibiotic cream or ointment onto the skin 3-4 times a day, unless something else was prescribed. Some ointments include an antibiotic plus a local pain reliever. If your doctor prescribed antibiotics, do not stop taking this medication until you have finished the prescribed course or the doctor tells you to stop. You may use an [id number] pain medication to control pain, unless another pain medicine was prescribed. If you have chronic liver or kidney disease or ever had a stomach ulcer or GI bleeding, talk with your doctor before using these any of these. Follow-up care Follow up with your health care provider as advised by our staff. Look at your wound each day for the signs of worsening infection listed below. When to seek medical care Get prompt medical attention if any of the following occur: An increase in redness or swelling Red streaks in the skin leading away from the abscess An increase in local pain or swelling Fever of 100.4F (38C) or higher, or as directed by your health care provider Pus or fluid coming from the abscess You have been given the following additional information: Abscess, Antiobiotic Treatment Only (Electronically signed by Riccardo Rossi MD 11/12/2016 15:43)
--- NOTE | 2016-11-12 15:43 | ED MED RECONCILIATION SUMMARY ---
Patient: JACOB QUINTANA Medication Reconciliation Report [facility] VisitID: [id number] [address] [place] [address] 36y, M Registration Date/Time: 11/11/2016 Weight: 75.7 kg Height/Length: 65 in. BMI: 27.8 ALLERGIES: Codeine The patient's Home Medications are listed below: THE FOLLOWING MEDICATIONS NEED TO BE RECONCILED: Adderall Oral Methadone HCl Oral 90 mg The source(s) of the original Home Medication information: Not obtained. The following Medications were given to the patient in the Emergency Department: None. The following Medications were prescribed to the patient: Bactrim DS 800 mg / 160 mg: Take 1 tablet orally every 12 hours for 7 days. Dispense fourteen (14). No refills. Substitution is permissible. -- Riccardo Rossi MD Keflex 500 mg: take 1 capsule orally every 6 hours for 7 days. No refills. Substitution is permissible. -- Riccardo Rossi MD
--- NOTE | 2016-11-12 15:43 | ED MAR SUMMARY ---
..... Medication Administration Record [facility] [address] [place], [place] [id number] Patient: JACOB QUINTANA Visit ID: [id number] 36y, M Weight: 75.7 kg Height/Length: 65 in BMI: 27.8 ALLERGIES: Codeine
--- NOTE | 2016-11-12 15:43 | ED MED RECONCILIATION SUMMARY ---
Patient: JACOB QIUNTANA Medication Reconciliation Report [facility] VisitID: [id number] [address] [place] [address] 36y, M Registration Date/Time: 11/11/2016 Weight: 75.7 kg Height/Length: 65 in. BMI: 27.8 ALLERGIES: Codeine The patient's Home Medications are listed below: THE FOLLOWING MEDICATIONS NEED TO BE RECONCILED: Adderall Oral Methadone HCl Oral 90 mg The source(s) of the original Home Medication information: Not obtained. The following Medications were given to the patient in the Emergency Department: None. The following Medications were prescribed to the patient: Bactrim DS 800 mg / 160 mg: Take 1 tablet orally every 12 hours for 7 days. Dispense fourteen (14). No refills. Substitution is permissible. -- Riccardo Rossi MD Keflex 500 mg: take 1 capsule orally every 6 hours for 7 days. No refills. Substitution is permissible. -- Riccardo Rossi MD
== END 2016-11-11 14:37 | disposition home or self-care (01) ==
LOC: ED SRH 13:42
DX: L02.01 Cutaneous abscess of face (principal); I10 Essential (primary) hypertension; F19.10 Other psychoactive substance abuse, uncomplicated; Z86.14 Personal history of Methicillin resistant Staphylococcus aureus infection